=== PATIENT | female | born 2000 | race African-American/Black ===

== ENCOUNTER 2021-07-22 12:01 | Outpatient (REF) | payer OTHER, SELFPAY ==
[2021-07-22 13:45] LABS: MANUAL DIFF FLAG NO
[2021-07-22 13:51] LABS: Basophils Percent Auto 0.6 % (0-2); Eosinophils Absolute Auto 0.1 X10*3/uL (0.0-0.4); Eosinophils Percent Auto 2.7 % (0-4); Hematocrit 38.7 % (37.0-47.0); Hemoglobin 13.2 g/dl (12.0-16.0); Imm Gran Abs Auto 0.02 X10*3/uL (0.00-0.03); Imm Gran Pct Auto 0.4 % (0.0-0.4); Lymphocytes Absolute Auto 2.3 X10*3/uL (1.2-4.9); Lymphocytes Percent Auto 47.9 % (20-40); Mean Corpuscular HGB Conc 34.1 g/dl (31.0-35.0); Mean Corpuscular Hemoglobin 30.8 pg (27.0-33.0); Mean Corpuscular Volume 90.2 fL (80.0-98.0); Mean Platelet Volume 9.2 fL (9.4-12.3); Monocytes Absolute Auto 0.3 X10*3/uL (0.1-1.2); Monocytes Percent Auto 6.4 % (2-11); Neutrophils Absolute Auto 2.04 x10*3/uL (2.0-8.3); Platelet Count 314 X10*3/uL (160-400); Red Blood Count 4.29 X10*6/uL (4.20-5.50); Red Cell Distribution Width 12.2 % (11.0-16.0); White Blood Count 4.9 X10*3/uL (4.8-10.8)
[2021-07-22 14:23] LABS: Alanine Aminotransferase 10 U/L (0-31); Anion Gap 11 (12-20); Aspartate Amino Transferase 17 U/L (5-31); Blood Urea Nitrogen 9 mg/dL (9-16); Calcium 9.5 mg/dL (8.4-10.2); Carbon Dioxide 27 mmol/L (22-29); Chloride 108 mmol/L (96-108); Cholesterol 212 mg/dL; Estimated Glomerular Filt Rate > 60; Glucose Fasting 101 mg/dL (60-99); HDL Cholesterol 87 mg/dL; LDL Cholesterol Calculated 114 mg/dl; Potassium 4.1 mmol/L (3.3-5.1); Sodium 142 mmol/L (135-145); Triglycerides 59 mg/dL
[2021-07-22 14:40] LABS: Vitamin D 25-OH Total 9.6 ng/mL (>30)
== END 2021-07-22 12:02 | disposition home or self-care (01) ==
LOC: HO.HMGCLDS 12:01
PROVIDERS: PCP Internal Medicine; Visit Provider Internal Medicine
DX: Z00.00 Encounter for general adult medical examination without abnormal findings (principal); I10 Essential (primary) hypertension
CPT/HCPCS: 36415; 80048; 80061; 82306; 84450; 84460; 85025

== ENCOUNTER 2021-11-03 14:30 | Outpatient (REF) | payer OTHER, SELFPAY ==
[2021-11-03 17:00] LABS: Vitamin D 25-OH Total 140.8 ng/mL (>30)
== END 2021-11-03 14:31 | disposition home or self-care (01) ==
LOC: HO.HMGCLDS 14:30
PROVIDERS: PCP Internal Medicine; Visit Provider Internal Medicine
DX: E55.9 Vitamin D deficiency, unspecified (principal)
CPT/HCPCS: 36415; 82306

== ENCOUNTER 2022-07-22 10:27 | Outpatient (REF) | payer OTHER, SELFPAY ==
[2022-07-22 12:42] LABS: Vitamin D 25-OH Total 20.7 ng/mL (>30)
[2022-07-22 13:00] LABS: Cholesterol 208 mg/dL; Glucose Fasting 88 mg/dL (60-99); HDL Cholesterol 91 mg/dL; LDL Cholesterol Calculated 100 mg/dl; Triglycerides 85 mg/dL
== END 2022-07-22 10:28 | disposition home or self-care (01) ==
LOC: HO.HMGCLDS 10:27
PROVIDERS: PCP Internal Medicine; Visit Provider Internal Medicine
DX: Z00.00 Encounter for general adult medical examination without abnormal findings (principal); Z86.39 Personal history of other endocrine, nutritional and metabolic disease
CPT/HCPCS: 36415; 80061; 82306; 82947

== ENCOUNTER 2022-10-14 12:55 | Outpatient (REF) | payer OTHER, SELFPAY ==
[2022-10-14 14:56] LABS: Vitamin D 25-OH Total 71.2 ng/mL (>30)
== END 2022-10-14 12:56 | disposition home or self-care (01) ==
LOC: HO.HMGCLDS 12:55
PROVIDERS: Visit Provider Internal Medicine
DX: E55.9 Vitamin D deficiency, unspecified (principal)
CPT/HCPCS: 36415; 82306

== ENCOUNTER 2023-09-08 13:30 | Outpatient (AMB) | payer OTHER, SELFPAY ==
[2023-09-08 13:31] VITALS: BP 102/66; PULSE 82; O2SAT 97; BMI 18.4
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
== END 2023-09-08 14:07 | disposition home or self-care (01) ==
PROVIDERS: PCP Internal Medicine; Visit Provider Internal Medicine
DX: Z00.00 Encounter for general adult medical examination without abnormal findings (principal); Z86.39 Personal history of other endocrine, nutritional and metabolic disease; R51.9 Headache, unspecified
CPT/HCPCS: 99395

== ENCOUNTER 2023-09-08 14:08 | Outpatient (REF) | payer OTHER, SELFPAY ==
[2023-09-08 16:00] LABS: MANUAL DIFF FLAG NO
[2023-09-08 16:14] LABS: Basophils Percent Auto 1.1 % (0-2); Eosinophils Absolute Auto 0.1 X10*3/uL (0.0-0.4); Eosinophils Percent Auto 2.7 % (0-4); Hematocrit 40.8 % (37.0-47.0); Hemoglobin 13.8 g/dl (12.0-16.0); Imm Gran Abs Auto 0.01 X10*3/uL (0.00-0.03); Imm Gran Pct Auto 0.3 % (0.0-0.4); Lymphocytes Absolute Auto 1.7 X10*3/uL (1.2-4.9); Lymphocytes Percent Auto 45.8 % (20-40); Mean Corpuscular HGB Conc 33.8 g/dl (31.0-35.0); Mean Corpuscular Hemoglobin 30.1 pg (27.0-33.0); Mean Corpuscular Volume 88.9 fL (80.0-98.0); Mean Platelet Volume 9.1 fL (9.4-12.3); Monocytes Absolute Auto 0.2 X10*3/uL (0.1-1.2); Monocytes Percent Auto 5.9 % (2-11); Neutrophils Absolute Auto 1.6 x10*3/uL (2.0-8.3); Neutrophils Percent Auto 44.2 % (45-73); Platelet Count 273 X10*3/uL (160-400); Red Blood Count 4.59 X10*6/uL (4.20-5.50); Red Cell Distribution Width 12.1 % (11.0-16.0); White Blood Count 3.7 X10*3/uL (4.8-10.8)
[2023-09-08 16:53] LABS: Anion Gap 12 (12-20); Blood Urea Nitrogen 10 mg/dL (9-16); Calcium 9.5 mg/dL (8.4-10.2); Carbon Dioxide 26 mmol/L (22-29); Chloride 106 mmol/L (96-108); Cholesterol 233 mg/dL (<200); Estimated Glomerular Filt Rate > 60; Glucose Fasting 90 mg/dL (60-99); HDL Cholesterol 104 mg/dL (>40); LDL Cholesterol Calculated 115 mg/dL (<100); Potassium 3.6 mmol/L (3.3-5.1); Sodium 140 mmol/L (135-145); Triglycerides 73 mg/dL (<150)
[2023-09-08 17:10] LABS: Vitamin D 25-OH Total 24.4 ng/mL (>30)
[2023-09-08 17:23] LABS: Folate 9.1 ng/mL (> or = 4.0); Vitamin B12 572 pg/mL (200-900)
== END 2023-09-08 14:09 | disposition home or self-care (01) ==
LOC: HO.HMGCLDS 14:08
PROVIDERS: PCP Internal Medicine; Visit Provider Internal Medicine
DX: Z00.01 Encounter for general adult medical examination with abnormal findings (principal); Z86.39 Personal history of other endocrine, nutritional and metabolic disease
CPT/HCPCS: 36415; 80048; 80061; 82306; 82607; 82746; 85025

== ENCOUNTER 2024-09-17 12:28 | Outpatient (AMB) | payer OTHER, SELFPAY ==
--- NOTE | 2024-09-17 12:49 | MHC.PC.OV ---
Vital Signs 09/17/24 12:57 Height 5 ft Weight 98 lb BMI 19.1 BP 106/62 Blood Pressure Location Rt brachial Position Sitting Pulse 97 Pulse Source Pulse Oximeter Pulse Oximetry (%) 99 Oxygen Delivery Method Room Air Intake Visit Reasons: Annual PE Intake Note: Pt is here today for her PE: Never had a papsmear and not sexually active Is last menstrual period known: Yes Last menstrual period: 08/29/24 Allergies No Known Allergies Allergy (Verified 09/17/24 13:11) Medication List - Last Reconciled 09/17/24 by Marlene Wright MD cholecalciferol (vitamin D3) 50 mcg PO DAILY Tobacco use date assessed: 09/17/24 Dental Screening Dental Screen Date: 09/17/24 Did you have a dental visit in the last 12 months?: Yes Did you have a dental problem in the last 6 months where you did not have access to dental care?: No Was dental information given to patient?: Patient has dentist HPI Annual PE HPI Details 24-year-old lady here today for her yearly physical exam. She has never had a Pap smear but has never been sexually active, does not want to get a pelvic exam or Pap smear on this visit. She is up-to-date with her Tdap, has had COVID vaccines and flu shots in the past but has not yet had the latest flu vaccine COVID booster. Patient states that she is planning to get both at the pharmacy. Has been feeling fine with no complaints at present time [facility] Medical History Myopia of both eyes History of vitamin D deficiency Vitamin D deficiency Surgical History H/O wisdom tooth extraction Family History Mother Colon cancer, Onset Age: 51 Father Bronchial asthma Social History Housing: House Patient Tobacco Use Status: Never used Tobacco e-Cigarette/Vaping Use: Never Used service: No Current occupational status: employed Cognitive needs: No Hearing needs: No Vision needs: Yes Female Reproductive History Menstrual Date of last menstrual period: 08/29/24 Questionnaire PHQ-9 Over the last 2 weeks, how often have you been bothered by any of the following problems? 1. Little interest or pleasure in doing things: not at all 2. Feeling down, depressed, or hopeless: not at all 3. Trouble falling or staying asleep, or sleeping too much: not at all 4. Feeling tired or having little energy: not at all 5. Poor appetite or overeating: not at all 6. Feeling bad about yourself - or that you are a failure or have let yourself or your family down: not at all 7. Trouble concentrating on things, such as reading the newspaper or watching television: not at all 8. Moving or speaking so slowly that other people could have noticed. Or the opposite - being so fidgety or restless that you have been moving around a lot more than usual: not at all 9. Thoughts that you would be better off or of hurting yourself in some way: not at all Total score: 0 Depression Screening Interpretation: Negative Depression Screening Done: Yes 94992 - PHQ-9 Billing: Yes Source: Developed by Drs. Edinson Zelaya, Crista Kan, Arvin Lanza and colleagues, with an educational delmi from [employer]. Thrive Questionnaire Date Thrive assessed: 09/20/23 I am a: Patient What is your living situation today?: I have a steady place to live Within the past 12 months, did the food you bought not last and you didn't have the money to get more?: Never true Within the past 12 months, did you worry whether your food would run out before you got money to buy more?: Never true Do you have trouble paying for medicines?: No Do you have trouble getting transportation to medical appointments?: No Do you have trouble paying your heating and electricity bill?: No Do you have trouble taking care of your child, family member or friend?: No Do you have trouble with day-to-day activities such as bathing, preparing meals, shopping, managing finances, etc.?: No Are you currently unemployed and looking for a job?: No Are you interested in more education?: Yes Please select the resources that you would like help with: None Currently or been in a relationship where the following occur: No concerns reported THRIVE Score: 0 AUDIT C Alcohol Use Questionnaire (AUDIT-C) 1. How often do you have a drink containing alcohol?: Monthly or less 2. How many drinks containing alcohol do you have on a typical day when you are drinking?: 1 or 2 3. How often do you have six or more drinks on one occasion?: Never Total Score: 1 DRE-7 AMB Questionnaire DRE-7 Date DRE - 7 assessed: 09/17/24 Feeling nervous, anxious, or on edge: 0 = Not at all Not being able to stop or control worryin = Not at all Worrying too much about different things: 0 = Not at all Trouble relaxin = Not at all Being so restless that it is hard to sit still: 0 = Not at all Becoming easily annoyed or irritable: 0 = Not at all Feeling afraid as if something awful might happen: 0 = Not at all Total DRE-7 score (0-4 normal; 5-9 mild; 10-14 moderate; 15-21 severe): 0 Source: Developed by Drs. Edinson Zelaya, Crista Kan, Arvin Lanza and colleagues, with an educational delmi from [employer]. DRE-7 Assessment Billing DRE-7 Assessment Tool: DRE-7 Assessment 64085 Review of Systems Const Denies body aches, Denies fatigue, Denies fever(s) and Denies weakness Eyes Details: wears contacts , sees dr Yeh at [facility] optical Denies change in vision, Denies eye discharge and Denies itchy eyes ENT Denies dizziness, Denies nasal congestion, Denies nasal discharge and Denies sore throat Card Denies chest pain, Denies lightheadedness, Denies palpitations and Denies dyspnea Resp Denies chest congestion, Denies cough, Denies dyspnea and Denies wheezing GI Denies abdominal pain, Denies change in bowel habits and Denies heartburn Denies urinary frequency, Denies dysuria and Denies urinary urgency Musc Reports no additional complaints Skin/Breast Denies lesions and Denies rash Neuro Denies dizziness and Denies weakness Psych Reports no additional complaints Endo Denies fatigue, Denies polydipsia, Denies polyuria and Denies palpitations Dexter/Lymph Denies easy bruising Aller/Immun Denies itchy eyes, Denies seasonal rhinorrhea and Denies wheezing Physical exam (Primary Care) Vital Signs: Last Vital Signs Pulse 97 09/17/24 12:57 BP 106/62 09/17/24 12:57 Pulse Ox 99 09/17/24 12:57 Oxygen Delivery Method Room Air 09/17/24 12:57 BMI result Body Mass Index 19.1 Tobacco/Smoking Status: Tobacco use Status Tobacco use date assessed 09/17/24 09/17/24 12:50 Patient Tobacco Use Status Never used Tobacco 09/17/24 12:49 e-Cigarette/Vaping Use Never Used 09/17/24 12:49 PHQ-9: PHQ-9 Score PHQ-9: Total score 0 09/21/24 03:26 Depression Screening Interpretation: Negative Thrive Assessment: Date of Thrive Assessment Date Thrive assessed 09/20/23 09/17/24 13:02 Currently or been in a relationship where the following occur: No concerns reported Const General: cooperative, comfortable and no acute distress Orientation/consciousness: patient oriented x3 Limitations: no limitations HENMT Ears: hearing grossly normal bilaterally General nose exam: Normal external nose present and Normal nasal mucous membranes and turbinates present Mouth: Normal oral and palatal mucosa present, oropharynx normal and moist mucous membranes Throat: Yes posterior oropharynx normal Eyes General: appearance normal, both eyes and all related structures Conjunctivae: conjunctivae normal Pupils: Equal, round and reactive pupils present EOM: EOMs intact bilaterally Neck Neck: Yes full ROM, Yes no lymphadenopathy and Yes supple Chest Breast/axilla inspection: normal inspection of the breasts Breast/axilla palpation: normal palpation of the breasts and normal palpation of the axillae Resp Effort & Inspection: normal respiratory effort and able to speak in complete sentences Auscultation: clear to auscultation bilaterally Cardio Rate: regular rate Rhythm: regular rhythm Heart sounds: S1 normal heart sound present and S2 normal heart sound present GI Inspection: Yes normal to inspection Palpation (GI): Soft to palpation, nontender and no masses Auscultation: normal bowel sounds Other: pt declined , never been sexually active Back/Spine/Pelvis Cervical Spine: cervical ROM normal Thoracic/Lumbar Spine: thoracic and lumbar spine normal to inspection Skin General skin exam: no rashes or lesions noted Neuro General: patient oriented x3, gait normal, tone normal, moves all extremities, Normal light touch and pain sensation and no focal motor deficits Cranial nerves: Yes Equal, round and reactive pupils present Cognition (Neuro): normal cognition Gait exam (Neuro): Normal gait present Motor exam (neuro): 5/5 motor strength present throughout Extrem General: Yes full ROM, Yes no joint enlargement, Yes no pedal edema, Yes no calf tenderness and Yes normal gait Psych Appearance: grossly normal Mental Status: mental status grossly normal Speech and movement: Normal speech and movement present Affect: normal affect Attitude: cooperative Thought process: Normal thought process present Thought content: Normal thought content present Coding Level of Care Code Est Pt Prev Care 18-39y(20524) Diagnoses Annual visit for general adult medical examination with abnormal findings Z00. Myopia of both eyes H52.13 Vitamin D deficiency E55.9 Encounter for counseling regarding advance directives Z71.89 Additional Codes PHQ-9 - 42730 - PHQ-9 Billing: Yes ([id number]) DRE-7 Assessment Billing - DRE-7 Assessment Tool: DRE-7 Assessment 68347 ([id number]) Assessment & Plan Assessment & Plan (1) Annual visit for general adult medical examination with abnormal findings: Code(s): Z00.01 - Encounter for general adult medical examination with abnormal findings Plan: Will check appropriate labs. Continue regular dental visit every 6 months and regular eye exams, at least every 2 years, goes to [facility].. Take adequate calcium in diet and vitamin-D 3 at 2000 IU per cap once a day, in addition to weight-bearing exercises to help maintain good muscle tone and weight control. Instructed to do self-breast exam, and recommended to get yearly mammogram, starting at age 40. Reminded to get her yearly flu shot and COVID booster. Up-to-date with her Tdap (2) Myopia of both eyes: Comment: Goes to [facility], has contacts and eyeglasses Code(s): H52.13 - Myopia, bilateral Category: Medical Plan: Up-to-date with her eye exam, goes to [facility] (3) Vitamin D deficiency: Code(s): E55.9 - Vitamin D deficiency, unspecified Category: Medical Plan: Will check vitamin-D level (4) Encounter for counseling regarding advance directives: Code(s): Z71.89 - Other specified counseling Plan: Initiated the conversation about Advanced Directives. Advanced Directives help patients prepare for current and future decisions about their medical treatment and place of care. Discussed with patient that it is a process where a patients current condition and prognosis are reviewed, their wishes for information regarding their illness are elicited, and likely medical dilemmas are presented and options discussed. Healthcare proxy form completed today. The form can be amended as needed, reviewed yearly and make changes as needed Orders: Orders Lipid Panel 09/17/24 E55.9 - Vitamin D deficiency, unspecified, Z00.01 - Encounter for general adult medical examination with abnormal findings, Z71.89 - Other specified counseling Glucose Fasting 09/17/24 E55.9 - Vitamin D deficiency, unspecified, Z00.01 - Encounter for general adult medical examination with abnormal findings, Z71.89 - Other specified counseling Vitamin D 25-OH Total 09/17/24 E55.9 - Vitamin D deficiency, unspecified, Z00.01 - Encounter for general adult medical examination with abnormal findings, Z71.89 - Other specified counseling
[2024-09-17 12:57] VITALS: BP 106/62; PULSE 97; O2SAT 99; BMI 19.1
== END 2024-09-17 13:35 | disposition home or self-care (01) ==
PROVIDERS: PCP Internal Medicine; Visit Provider Internal Medicine
DX: Z00.01 Encounter for general adult medical examination with abnormal findings (principal); H52.13 Myopia, bilateral; E55.9 Vitamin D deficiency, unspecified; Z71.89 Other specified counseling

== ENCOUNTER 2024-09-17 12:28 | Outpatient (REF) | payer OTHER, SELFPAY ==
[2024-09-17 17:27] LABS: Vitamin D 25-OH Total 24.9 ng/mL (>30)
== END 2024-09-17 12:29 | disposition home or self-care (01) ==
LOC: HO.HMGCLDS 12:28
PROVIDERS: PCP Internal Medicine; Visit Provider Internal Medicine
DX: Z00.01 Encounter for general adult medical examination with abnormal findings (principal); H52.13 Myopia, bilateral; E55.9 Vitamin D deficiency, unspecified; Z71.89 Other specified counseling
CPT/HCPCS: 36415; 82306; 96127

== ENCOUNTER 2025-05-30 09:09 | Outpatient (AMB) | payer OTHER, SELFPAY ==
--- NOTE | 2025-05-30 09:06 | MHC.PC.OV ---
Intake Visit Reasons: H-pylori f/u Allergies No Known Allergies Allergy (Verified 05/30/25 09:44) Medication List - Last Reconciled 05/30/25 by Marlene Wright MD cholecalciferol (vitamin D3) 50 mcg PO DAILY Tobacco use date assessed: 05/30/25 Dental Screening Dental Screen Date: 05/30/25 Did you have a dental visit in the last 12 months?: Yes Did you have a dental problem in the last 6 months where you did not have access to dental care?: No Was dental information given to patient?: Patient has dentist HPI H-pylori f/u HPI Details The patient is a 25-year-old female presenting for follow-up regarding recent Helicobacter pylori infection. She was treated with Bismuth subsalicylate:?262.4 mg (two tablets) four times a day. Metronidazole:?250 mg four times a day. Tetracycline:?500 mg four times a day. PPI:?Twice a day. She experienced a weird taste and burping, which led to the initial diagnosis and treatment of the infection. During the course of treatment, the patient reported nausea and vomiting, which she attributed to the medication regimen. She expressed relief that the treatment duration was 10 days instead of two weeks The patient has a family history of Helicobacter pylori infection, with her mother and brother having been affected in the past two years. She is currently asymptomatic, with no reports of heartburn or bloating. [facility] Medical History (Updated 05/12/25 @ 22:28 by Marlene Wright MD) H. pylori infection Myopia of both eyes History of vitamin D deficiency Vitamin D deficiency Surgical History H/O wisdom tooth extraction Family History Mother Colon cancer, Onset Age: 51 Father Bronchial asthma Social History Housing: House Patient Tobacco Use Status: Never used Tobacco e-Cigarette/Vaping Use: Never Used service: No Current occupational status: employed Cognitive needs: No Hearing needs: No Vision needs: Yes Questionnaire PHQ-9 Over the last 2 weeks, how often have you been bothered by any of the following problems? 1. Little interest or pleasure in doing things: not at all 2. Feeling down, depressed, or hopeless: not at all 3. Trouble falling or staying asleep, or sleeping too much: not at all 4. Feeling tired or having little energy: not at all 5. Poor appetite or overeating: not at all 6. Feeling bad about yourself - or that you are a failure or have let yourself or your family down: not at all 7. Trouble concentrating on things, such as reading the newspaper or watching television: not at all 8. Moving or speaking so slowly that other people could have noticed. Or the opposite - being so fidgety or restless that you have been moving around a lot more than usual: not at all 9. Thoughts that you would be better off or of hurting yourself in some way: not at all Total score: 0 Depression Screening Interpretation: Negative Depression Screening Done: Yes 36368 - PHQ-9 Billing: Yes Source: Developed by Drs. Edinson Zelaya, Crista Kan, Arvin Lanza and colleagues, with an educational delmi from [employer]. Thrive Questionnaire Date Thrive assessed: 05/30/25 I am a: Patient What is your living situation today?: I have a steady place to live Within the past 12 months, did the food you bought not last and you didn't have the money to get more?: Never true Within the past 12 months, did you worry whether your food would run out before you got money to buy more?: Never true Do you have trouble paying for medicines?: No Do you have trouble getting transportation to medical appointments?: No Do you have trouble paying your heating and electricity bill?: No Do you have trouble taking care of your child, family member or friend?: No Do you have trouble with day-to-day activities such as bathing, preparing meals, shopping, managing finances, etc.?: No Are you currently unemployed and looking for a job?: No Are you interested in more education?: Yes Please select the resources that you would like help with: None Currently or been in a relationship where the following occur: No concerns reported THRIVE Score: 0 AUDIT C Alcohol Use Questionnaire (AUDIT-C) 2. How many drinks containing alcohol do you have on a typical day when you are drinking?: 1 or 2 3. How often do you have six or more drinks on one occasion?: Never Total Score: 0 Score Reviewed/Action Taken: Yes DRE-7 AMB Questionnaire DRE-7 Date DRE - 7 assessed: 05/30/25 Feeling nervous, anxious, or on edge: 0 = Not at all Not being able to stop or control worryin = Not at all Worrying too much about different things: 0 = Not at all Trouble relaxin = Not at all Being so restless that it is hard to sit still: 0 = Not at all Becoming easily annoyed or irritable: 0 = Not at all Feeling afraid as if something awful might happen: 0 = Not at all Total DRE-7 score (0-4 normal; 5-9 mild; 10-14 moderate; 15-21 severe): 0 Source: Developed by Drs. Edinson Zelaya, Crista Kan, Arvin Lanza and colleagues, with an educational delmi from [employer]. DRE-7 Assessment Billing DRE-7 Assessment Tool: DRE-7 Assessment 36975 Review of Systems Const All systems reviewed & are unremarkable except as noted in HPI and below GI Denies abdominal pain, Denies change in bowel habits, Denies change in stool character, Denies excessive flatus, Denies dyspepsia, Denies heartburn and Denies nausea Physical exam (Primary Care) Tobacco/Smoking Status: Tobacco use Status Tobacco use date assessed 05/30/25 05/30/25 09:09 Patient Tobacco Use Status Never used Tobacco 05/30/25 09:09 e-Cigarette/Vaping Use Never Used 05/30/25 09:09 PHQ-9: PHQ-9 Score PHQ-9: Total score 0 05/30/25 09:09 Depression Screening Interpretation: Negative Thrive Assessment: Date of Thrive Assessment Date Thrive assessed 05/30/25 05/30/25 09:09 Currently or been in a relationship where the following occur: No concerns reported Telehealth Telehealth Telehealth Platform: [employer] Location of provider rendering services: practice address Location of patient: address on file Patient Identification confirmed using: Name, : Yes Telehealth method: video Patient verbally consented to treatment: Yes Patient verbally consented to billing insurance company: Yes Patient informed of any privacy concerns related to visit: Yes Minutes spent on Phone/Video with Pt.: 15 Coding Level of Care Code Tele Est Pt Level 4 (10753) Diagnoses History of Helicobacter pylori infection Z86.19 Additional Codes DRE-7 Assessment Billing - DRE-7 Assessment Tool: DRE-7 Assessment 37284 ([id number]) PHQ-9 - 38877 - PHQ-9 Billing: Yes ([id number]) Assessment & Plan Assessment & Plan (1) History of Helicobacter pylori infection: Code(s): Z86.19 - Personal history of other infectious and parasitic diseases Plan: Patient was informed and verbally consented to the use of an ambient scribe for clinic note documentation during this visit. Advised to get a urea breath test to confirm the eradication of Helicobacter pylori infection. She is advised to ensure her food is well-cooked to prevent reinfection, given her family history of susceptibility. No further proton pump inhibitors are needed as she is asymptomatic for heartburn.
== END 2025-05-30 15:31 | disposition home or self-care (01) ==
LOC: HO.HMCC 09:09
PROVIDERS: PCP Internal Medicine; Visit Provider Internal Medicine
DX: A04.8 Other specified bacterial intestinal infections (principal); Z86.19 Personal history of other infectious and parasitic diseases

== ENCOUNTER → 2025-05-30 09:09 | Outpatient (BNVA) | payer OTHER, SELFPAY | PROVIDERS: PCP Internal Medicine; Visit Provider Internal Medicine | DX: Z86.19 Personal history of other infectious and parasitic diseases (principal); Z13.31 Encounter for screening for depression; Z13.39 Encounter for screening examination for other mental health and behavioral disorders | CPT/HCPCS: 96127 ==